=== PATIENT | male | born 1985 | race African-American/Black ===

== ENCOUNTER 2016-08-01 15:08 | Emergency (ER) | payer OTHER ==
[2016-08-01 15:51] VITALS: BP 153/84; PULSE 83; RESP 18; TEMP 99; O2SAT 96
--- NOTE | 2016-08-01 16:15 | UCPHY ---
[id number] 4d 08/01/16 15:50 HPI/ROS: CHIEF COMPLAINT: Cough HISTORY OF PRESENT ILLNESS: 31-year-old male presents to urgent care by private vehicle complaining of nonproductive cough for last few days. Patient has had subjective fevers and chills. He occasionally feels short of breath. No other chest pain. No rash. No abdominal pain or vomiting. His is sick with similar symptoms. He did get a flu shot this year. No recent travel. REVIEW OF SYSTEMS: Constitutional: Subjective fevers, chills Eyes: No double or blurry vision. ENT: No sore throat. Respiratory: Cough, shortness of breath Cardiac: No chest pain. Gastrointestinal: No abdominal pain, vomiting or diarrhea. Genitourinary: No dysuria. Musculoskeletal: No neck or back pain. Skin: No rashes. Neurological: No headache. (Caroline Florian) Past Medical/Surgical History: Crohn's, GERD (Caroline Florian) Social History: (Caroline Florian) Physical Exam: General Appearance: Alert, no distress. 96%, temperature 37.2 Eyes: Pupils equal and round. Extraocular motions are all intact. ENT: Mouth: Mucous membranes moist. Respiratory: Expiratory wheezing noted throughout. No rales. No retractions or respiratory distress. Cardiovascular: Regular rate and rhythm. Gastrointestinal: Abdomen is soft and nontender, no masses, no rebound or guarding, bowel sounds normal. Neurological: Alert and oriented x 3, cranial nerves II through XII grossly intact Skin: Warm and dry, no rashes. Musculoskeletal: Nontender to palpate along the cervical, thoracic or lumbar spine. Neck is supple. Extremities: Full range of motion and no peripheral edema. Psychiatric: Patient is oriented X 3, there is no agitation. (Caroline Florian) Constitutional: Initial Vital Signs Temperature (C) 37.2 C 08/01/16 15:47 Heart Rate 83 08/01/16 15:47 Respiratory Rate 18 08/01/16 15:47 Blood Pressure 153/84 H 08/01/16 15:47 O2 Sat (%) 96 08/01/16 15:47 O2 Delivery Mode Room Air Allergies/Adverse Reactions: amoxicillin Allergy (Verified 08/01/16 15:47) Penicillins Allergy (Verified 08/01/16 15:47) Home Medications: Medication Instructions Recorded Albuterol [Proventil Inhaler HFA 1 - 2 puffs IH Q4PRN PRN #1 mdi 08/01/16 (*)] Azithromycin [Zithromax tab 250 mg] 250 mg PO DAILY #6 tab 08/01/16 Medical Decision Making ED Course/Re-evaluation: 31-year-old male presents with cough. Clinically I think this patient has bronchitis. He will be treated with albuterol inhaler and Zithromax. He was encouraged to stop smoking. He was told to return if he felt short of breath or if he had any other change in symptoms or felt worse. (Caroline Florian) Urgent Care PA supervision Physician documentation: The patient was evaluated and managed by the physician assistant activities director. My co- signature indicates that I have reviewed this chart and I agree with the findings and plan of care as documented. I am the secondary supervising physician. (Randy Oliver) Differential Diagnosis: Including but not limited to bronchitis, pneumonia, influenza, viral upper respiratory infection (Caroline Florian) Departure - Departure Disposition: Home, Routine, Self-Care Clinical Impression: Bronchitis Condition: Good Instructions: Acute Bronchitis (ED) Additional Instructions: Albuterol inhaler 2 puffs every 4 hours for one week and then as needed. Zithromax as directed for 5 days. Quit smoking. Adult Pain & Fever Control: We recommend Acetaminophen (Tylenol) and Ibuprofen (Motrin,Advil) for pain and fever control. When fever is high or pain severe, both drugs can be used at the same time, but at different intervals. Please note the time differences. Your dose is: Acetaminophen 1000mg every 4 to 6 hours Ibuprofen 600mg every 8 hours with food Note: do not take Acetaminophen with Hydrocodone (Vicodin, Lortab) or Oycodone (Percocet). These medications also contain Acetaminophen. No more than 3000mg of Acetaminophen should be taken in 24 hours (for an adult). Referrals: NONE *PRIMARY CARE P,. [Primary Care Provider] - As per Instructions Prescriptions: Albuterol [Proventil Inhaler HFA (*)] 1 - 2 puffs IH Q4PRN PRN #1 mdi PRN Reason: Short Of Breath/Dyspnea Azithromycin [Zithromax tab 250 mg] 250 mg PO DAILY #6 tab - PQRS PQRS Measurement: Not applicable (Caroline Florian)
== END 2016-08-01 16:32 | disposition home or self-care (01) ==
LOC: CED 15:08
DX: R05 Cough (principal); R06.02 Shortness of breath; R68.83 Chills (without fever); K50.90 Crohn's disease, unspecified, without complications; K21.9 Gastro-esophageal reflux disease without esophagitis; Z72.0 Tobacco use
CPT/HCPCS: 99214-PO; G0463-PO

== ENCOUNTER 2017-01-25 22:06 | Emergency (ER) | payer OTHER ==
[2017-01-25 22:19] VITALS: BP 142/85; PULSE 72; RESP 18; TEMP 97.9; O2SAT 95
[2017-01-25] MEDS ORDERED: HYDROmorphONE/DILAUDID 1 MG/ML SYR IM ONE (22:32)
[2017-01-25] MEDS ORDERED: HYDROmorphONE/DILAUDID 1 MG/ML SYR ONE (22:37)
--- NOTE | 2017-01-25 22:39 | EDPHY ---
H & P Time Seen by Provider: 01/25/17 22:20 HPI/ROS: HPI Left mid back pain. 31-year-old male by private vehicle with his . This patient was moving furniture all day. He reports that after doing so he developed pain paraspinal mid back on the left side. Exacerbated by movements. He has had no bowel or bladder incontinence. He denies any gross hematuria. No history of fall or trauma. No loss of sensation or weakness in his extremities. No history of IV drug abuse. No history of malignancy. No fever. ROS: Constitutional: No fever, no chills. No weakness. Respiratory: No cough. No shortness of breath. Cardiac: No chest pain, no palpitations. Gastrointestinal: No abdominal pain, no vomiting, no diarrhea. Genitourinary: No hematuria. As above Musculoskeletal: As above. No neck pain. No myalgias or arthralgias. Skin: No rashes. Neurological: No focal weakness or altered sensation. Past medical history: Crohn's, IBS, GERD, reflux. Social history: Nonsmoker. Here with his girlfriend. Physical Exam: General Appearance: Alert, no distress. This patient is responding to questions appropriately and in full sentences. This patient appears well- hydrated and well-nourished. Eyes: Pupils equal and round no pallor or injection. No lid edema, erythema or injection. Back exam: No cervical, thoracic, lumbar, sacral tenderness on palpation. He has vague tenderness on palpation over the paraspinal tissues and lateral to the posterior lateral rib margin, below the scapular angle extending down to approximately L1-L2. No soft tissue changes. No erythema, warmth, edema, ecchymosis noted. No bony step-off or point tenderness to indicate a rib fracture. Negative same side and cross side straight leg raise test. He is neurologically intact in all myotomes in dermatomes of the bilateral lower extremities. Chest/lungs: Chest wall is stable to AP and lateral palpation. Lungs are clear on auscultation bilaterally throughout with good air movement and no tachypnea. Gastrointestinal: Abdomen is soft and nontender, no masses, bowel sounds normal. No focal tenderness at McBurney's point. No Gallegos sign. Neurological: Motor sensory function is grossly intact. Cranial nerves are normal. Gait is normal. Skin: Warm and dry, no rashes. Musculoskeletal: Neck is supple and nontender. Extremities are symmetrical. All joints range without pain or impingement. Psychiatric: No agitation. No depression. Database: EKG: Imaging: Procedures: Emergency department course: Patient has a history of Crohn's disease. Secondary to this he has not supposed to take NSAIDs or like medications. He is not on any narcotic pain medications. His history and exam do not indicate any red flags. Plan will be to give him 2 mg of intramuscular hydromorphone in the emergency department. I will then send him home with a prescription for Flexeril to be taken over the next 3 days. 11:00 p.m., patient re-evaluated. Resting comfortably at this time. His pain is improving. He feels comfortable going home. Repeat neurologic Assessment is nonfocal. Follow-up and return to emergency department precautions reviewed with him. All of his questions were answered. He was discharged in good condition. Differential Diagnosis: The differential diagnosis on this patient includes but is not limited to mid back muscle strain. Epidural compression syndrome, acute radiculopathy, pneumothorax, ureterolithiasis, pyelonephritis, AAA, epidural abscess, traumatic spinal injury unlikely. This represents a partial list of diagnoses considered. These considerations are based on history, physical exam, past history, reassessment and diagnostic testing. Smoking Status: Current every day smoker Constitutional: Initial Vital Signs Temperature (C) 36.6 C 01/25/17 22:14 Heart Rate 72 01/25/17 22:14 Respiratory Rate 18 01/25/17 22:14 Blood Pressure 142/85 H 01/25/17 22:14 O2 Sat (%) 95 01/25/17 22:14 O2 Delivery Mode Room Air Allergies/Adverse Reactions: amoxicillin Allergy (Verified 01/25/17 22:20) Penicillins Allergy (Verified 01/25/17 22:20) Home Medications: Medication Instructions Recorded Cyclobenzaprine [Flexeril 10 MG 10 mg PO TID #9 tab 01/25/17 (*)] azaTHIOprine 01/25/17 Medical Decision Making - Data Points Medications Given: Discontinued Medications Hydromorphone HCl (Dilaudid) 2 mg IM EDNOW ONE Stop: 01/25/17 22:33 Last Admin: 01/25/17 22:47 Dose: 2 mg Departure - Departure Disposition: Home, Routine, Self-Care Clinical Impression: Mid back pain on left side Condition: Good Instructions: Back Pain (ED) Additional Instructions: Read and follow provided instructions. Follow-up with your primary care physician on Saturday for re-evaluation. Take medication as prescribed. This medication has sedative properties. You should not drive while on this medication. Return to the emergency department for worsening pain, loss of sensation or weakness in her extremities, fever, shortness of breath, pain persisting more than 3 days or other serious concerns. Avoid any physical activity that exacerbates your pain. Referrals: NONE *PRIMARY CARE P,. [Primary Care Provider] - As per Instructions Stand Alone Forms: Work Excuse Prescriptions: Cyclobenzaprine [Flexeril 10 MG (*)] 10 mg PO TID #9 tab
== END 2017-01-25 23:24 | disposition home or self-care (01) ==
LOC: CED 22:06
DX: M54.6 Pain in thoracic spine (principal); F17.200 Nicotine dependence, unspecified, uncomplicated
CPT/HCPCS: J1170